=== PATIENT | female | born 1935 | race Caucasian/White ===

== ENCOUNTER 2018-06-08 17:05 | Emergency (ER) | payer OTHER ==
--- NOTE | 2018-06-08 17:44 | EDPHY ---
H & P Smoking Status: Former smoker Time Seen by Provider: 06/08/18 17:42 HPI/ROS: CHIEF COMPLAINT: Left knee pain and right shoulder pain HISTORY OF PRESENT ILLNESS: The patient is a 83-year-old female on Coumadin who reports that she was carrying groceries into her house when she tripped and fell and landed on the left knee and right shoulder. She has not recall hitting her head and does not think she lost consciousness. She denies any headache or vision changes or neck pain. She denies any chest pain or shortness of breath or syncopal event. She denies dizziness. She has been able to stand on the left leg but this is painful. Addition she denies any numbness or weakness in the right arm. REVIEW OF SYSTEMS: Constitutional: No fever, no chills. Eyes: No discharge. ENT: No sore throat. Cardiovascular: No chest pain, no palpitations. Respiratory: No cough, no shortness of breath. Gastrointestinal: No abdominal pain, no vomiting. Genitourinary: No hematuria. Musculoskeletal: No back pain. Skin: No rashes. Neurological: No headache. (Charles Silva) Physical Exam: General Appearance: Alert and no distress. ENT: normal dentition. No tonsillar exudate or swelling. No Coulter signs, raccoon eyes or hemotympanum Eyes: Pupils equal and round no injection. Extraocular muscles intact. Respiratory: Chest is nontender, lungs are clear to auscultation. Cardiac: regular rate and rhythm. No lower extremity edema Gastrointestinal: Abdomen is soft and nontender, no masses, bowel sounds normal. Musculoskeletal: Neck is supple and nontender. Limited range of motion of left knee secondary to pain. Neurovascular intact distal to the left knee. Tenderness over the distal right clavicle. Full range of motion of the right arm with pain at the shoulder. Skin: Abrasion to left knee. Small abrasion to right lateral scalp Neuro: Cranial nerves grossly intact. No nystagmus. Normal [id number]-pu-[id number] testing. No ulnar drift. Equal grasp bilateral hands. Ambulatory. (Charles Silva) Constitutional: Initial Vital Signs Temperature (C) 36.5 C 06/08/18 17:20 Heart Rate 87 06/08/18 17:20 Respiratory Rate 16 06/08/18 17:20 Blood Pressure 151/85 H 06/08/18 17:20 O2 Sat (%) 94 06/08/18 17:20 O2 Delivery Mode Room Air Allergies/Adverse Reactions: No Known Allergies Allergy (Unverified 06/08/18 17:18) Home Medications: Medication Instructions Recorded Ascorbic Acid [Vitamin C 500 mg 500 mg PO DAILY 06/09/12 (OTC)] CALCIUM CARBONATE/VITAMIN D3 1 each PO DAILY 06/09/12 [CALCIUM + D 600 MG TABLET] Cholecalciferol Vit D3 [Vitamin D3 1,000 units PO DAILY 06/09/12 1000 units (OTC)] Ibuprofen [Motrin 200 mg (OTC)] 200 mg PO Q2 PRN 06/09/12 Multivitamins [Multivitamin (OTC)] 1 each PO DAILY 06/09/12 Simvastatin [Zocor 10 mg (RX)] 10 mg PO DAILY18 06/09/12 Hydrocodone/Acetaminophen [Warbranch 1 each PO Q6 #14 tablet 06/08/18 5-325 Tablet] Metoprolol Tartrate 06/08/18 Sonata 06/08/18 Medical Decision Making - Diagnostics Imaging Results: Imaging Impressions Head CT 06/08/18 17:49 Impression: Senescent features, with no acute intracranial abnormality identified on this unenhanced CT evaluation. If there is further clinical concern regarding the patient's symptoms, MR imaging is suggested, if not otherwise contraindicated. Findings were discussed with Charles Silva PA-C at 18:10, on 06/08/2018. Knee X-Ray 06/08/18 17:49 Impression: 1. Complex patellar fracture with 9 mm of displacement of the superior from inferior components. Shoulder X-Ray 06/08/18 17:49 Impression: Minimally displaced distal right clavicle fracture and also there appears to be a fracture of the tip of the coracoid process. Other chronic findings as above. ED Course/Re-evaluation: 83-year-old female here with ground level mechanical fall resulting in scalp abrasion, right clavicle fracture and left patella fracture. She was offered admission and consult from Orthopedics but patient declined. She was able to road test in the emergency room with crutches and knee immobilizer in place. She was given orthopedic follow-up. Pain well controlled on oral Warbranch. CT scan of the head showed no fracture or intracranial bleed. Indications for return to the emergency room were discussed. Differential diagnosis include dislocation, fracture, neurovascular injury, intracranial bleed, syncope ( Ricardo[place] camp) I did not see this patient while she was in the emergency department. However her care was discussed with the PA while the patient was in the department. I agree with treatment plan and management (Wilmer Joe Ria) - Data Points Medications Given: Discontinued Medications Hydrocodone Bitart/Acetaminophen (Warbranch 5/325) 1 tab PO EDNOW ONE Stop: 06/08/18 18:11 Last Admin: 06/08/18 18:13 Dose: 1 tab Hydrocodone Bitart/Acetaminophen (Warbranch 5/325mg Prepack#6) 1 btl TAKEHOME EDNOW ONE Stop: 06/08/18 19:48 Last Admin: 06/08/18 19:50 Dose: 1 btl Departure - Departure Disposition: Home, Routine, Self-Care Clinical Impression: Right clavicle fracture, Left patella fracture, Head injury Condition: Good Instructions: Hydrocodone/Acetaminophen (By mouth), Patellar Fracture (ED) Additional Instructions: Please wear the knee immobilizer to stabilize the fracture of her patella. Additionally wear the shoulder sling as needed for pain. Call Orthopedics tomorrow to schedule appointment to be seen late next week or as soon as you are available next week. He will need surgery to repair her patella. Return to the ER if you feel unsafe ambulating or for any other worsening or worrisome symptoms. Referrals: DIANELYS ANDINO [Primary Care Provider] - As per Instructions Radha Terrell MD [Medical Doctor] - As per Instructions Prescriptions: Hydrocodone/Acetaminophen [Warbranch 5-325 Tablet] 1 each PO Q6 #14 tablet
[2018-06-08] MEDS ORDERED: HYDROCODONE/APAP 5/325 TAB PO ONE (18:10)
[2018-06-08] MEDS ORDERED: HYDROCOD/APAP 5/325 PREPACK#6 BTL TAKEHOME ONE ×2 (19:44→19:47)
[2018-06-08 20:00] VITALS: BP 145/67
== END 2018-06-08 20:00 | disposition home or self-care (01) ==
DX: S82.032A Displaced transverse fracture of left patella, initial encounter for closed fracture (principal); S42.031A Displaced fracture of lateral end of right clavicle, initial encounter for closed fracture; S00.01XA Abrasion of scalp, initial encounter; W01.0XXA Fall on same level from slipping, tripping and stumbling without subsequent striking against object, initial encounter; Y93.E9 Activity, other interior property and clothing maintenance; Y92.019 Unspecified place in single-family (private) house as the place of occurrence of the external cause
CPT/HCPCS: 70450; 73030; 73564; 99284; A4565; L1830

== ENCOUNTER 2018-06-21 10:11 | Observation (INO) | payer OTHER ==
--- NOTE | 2018-06-19 16:32 | GHP ---
DATE OF ADMISSION: 06/21/2018 PROBLEM: Left patellar fracture. HISTORY OF PRESENT ILLNESS: The patient is an 83-year-old woman admitted for ORIF of left patellar f racture. She slipped and fell about a week and half ago. She was seen in the emergency room. Films showed a displaced transverse left patellar fracture. She also has a mildly-displaced right distal clavicle fracture. She has been wearing a Velcro splint on her knee and partial weightbearing. She is admitted for ORIF of her patellar fracture. PAST MEDICAL HISTORY: She had a pulmonary embolism in 2011. She has been on Coumadin 2.5 mg per day ever since then. She is also treated for hypertension. No history of heart disease, hepatitis, MRS A staph infection, sleep apnea, or bleeding disorders. CURRENT MEDICATIONS: Metoprolol and simvastatin. She takes Coumadin 2.5 mg per day. I had her stop the Coumadin 5 days prior to surgery, and I bridged her with Lovenox 40 mg per day. ALLERGIES: Drug Allergies: None. Latex allergy: None. SOCIAL HISTORY: The patient is . She does not smoke cigarettes or drink alcohol. PHYSICAL EXAMINATION: Vital Signs: Height 5 feet 2 inches. Weight 112 pounds. BMI 20.5. EYES: P upils are round and reactive. MOUTH: Complete upper and lower dentures. CHEST: Clear. HEART: Re gular rhythm, no murmurs. EXTREMITIES: Pertinent findings limited to her left knee. She has a mode rately large amount of resolving ecchymosis. She has some minor skin abrasion, which is healing. IMPRESSION ON ADMISSION: 1. Displaced left patellar fracture. 2. Moderately displaced right distal clavicle fracture. 3. History of pulmonary embolism in 2011. PLAN: She will undergo ORIF of her left patellar fracture. The surgery has been described to her, i ncluding the risks, complications, expectations, and recovery time. She stopped her Coumadin 5 days prior to surgery, and she has been on bridge therapy with Lovenox. I will start her back on her Coum yoni postoperatively. The surgery has been described to her, her , and to her daughter, including the risks, complic ations, expectations, and recovery time. All of their questions have been answered, and she consents to surgery. Incidentally, I did open reduction, internal fixation of her right patella 33 years ago. /[id number]/MODL
[~2018-06-21 10:11] MED LIST: POVIDONE-IODINE 20 ML in SODIUM CL IRRIG SOLUTION 500 ML IRR ONE; ROPIVACAINE 0.2% 80 MG, EPINEPHrine 0.2 MG, KETOROLAC TROMETHAMINE 30 MG in SYRINGE 0 ML IU ONE; TRANEXAMIC ACID 1,000 MG in NS 100 ML IV ONE; TRANEXAMIC ACID 3,000 MG in NS (SYRINGE) 50 ML IRR ONE
[2018-06-21] MEDS ORDERED: LR 1,000 ML IV SCH ×2 (11:45→15:30)
[2018-06-21] MEDS ORDERED: ACETAMINOPHEN 500 MG TAB PO ONE (11:45)
[2018-06-21] MEDS ORDERED: LIDOCAINE 1% 2 ML INJ ID PRN (11:45)
[2018-06-21] MEDS ORDERED: ceFAZolin 2 GM/DEXTROSE 100 ML IV ONE (11:45)
[2018-06-21] MEDS ORDERED: LR 1,000 ML IV ONE (11:45)
--- NOTE | 2018-06-21 12:31 | POSTANESTH ---
Post Anesthetic Evaluation Cardiovascular Status: Normal, Stable Respiratory Status: Normal, Stable Level of Consciousness/Mental Status: Can Participate in Eval, Mildly Sleepy, Arousable Pain Control: Adequate, Prn Tx Ordered Nausea/Vomiting Control: Adequate, Prn Tx Ordered Complications Possibly Related to Anesthesia: None Noted
--- NOTE | 2018-06-21 12:36 | PDANEPAE ---
ANE History of Present Illness 83 yo female s/p fall about 10 days ago with L patella fx for ORIF. ANE Past Medical History - Cardiovascular History Hx Hypertension: Yes Hx Arrhythmias: No Hx Chest Pain: No Hx Coronary Artery / Peripheral Vascular Disease: No Hx CHF / Valvular Disease: No Hx Palpitations: No Cardiovascular History Comment: high cholesterol - Pulmonary History Hx COPD: Yes Hx Asthma/Reactive Airway Disease: No Hx Recent Upper Respiratory Infection: No Hx Oxygen in Use at Home: No Hx Sleep Apnea: No Sleep Apnea Screening Result - Last Documented: Negative Pulmonary History Comment: mild copd. recent URI/ bronchitis, s/p Abx about 3 weeks ago - Neurologic History Hx Cerebrovascular Accident: No Hx Seizures: No Hx Dementia: No - Endocrine History Hx Diabetes: No Hypothyroid: No Hyperthyroid: No Obesity: no - Renal History Hx Renal Disorders: No - Liver History Hx Hepatic Disorders: No - Neurological & Psychiatric Hx Hx Neurological and Psychiatric Disorders: No - Cancer History Hx Cancer: Yes Cancer History Comment: skin ca - Congenital Disorder History Hx Congenital Disorders: No - GI History GERD: no Hx Gastrointestinal Disorders: No - Other Health History Other Health History: wears glasses. full dentures. right clavicle fx as well. 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 right knee repair 30 yrs ago with Cotuit ANE Review of Systems Review of Systems: - Exercise capacity METS (RN): 4 METS - Systems Constitutional: Reports: no symptoms Muscolosketal: Reports: joint pain ANE Patient History - Allergies Allergies/Adverse Reactions: No Known Allergies Allergy (Verified 06/19/18 14:36) - Home Medications Home Medications: Ascorbic Acid [Vitamin C 500 mg (OTC)] 06/09/12 [Last Taken 06/19/18] CALCIUM CARBONATE/VITAMIN D3 [CALCIUM + D 600 MG TABLET] 06/09/12 [Last Taken 06/19/18] Cholecalciferol Vit D3 [Vitamin D3 1000 units (OTC)] 06/09/12 [Last Taken 06/19] Ibuprofen [Motrin 200 mg (OTC)] PRN 06/09/12 [Last Taken 06/19/18] Multivitamins [Multivitamin (OTC)] 06/09/12 [Last Taken 06/19/18] Simvastatin [Zocor 10 mg (RX)] 06/09/12 [Last Taken 06/20/18] Metoprolol Tartrate 06/08/18 [Last Taken 06/21/18] Sonata 06/08/18 [Last Taken 06/20/18] Hydrocodone/Acetaminophen [Novice 5-325 Tablet] Q6 PRN 06/19/18 [Last Taken 06/20] - NPO status NPO Since - Liquids (Date): 06/21/18 NPO Since - Liquids (Time): 09:00 NPO Since - Solids (Date): 06/20/18 NPO Since - Solids (Time): 20:00 - Smoking Hx Smoking Status: Former smoker - Family Anes Hx Family Hx Anesthesia Complications: none ANE Labs/Vital Signs - Vital Signs Blood Pressure: 137/81 Heart Rate: 84 Respiratory Rate: 18 O2 Sat (%): 94 Height: 157.48 cm Weight: 50.802 kg ANE Physical Exam - Airway Neck exam: FROM Mallampati Score: Class 2 Mouth exam: dentures - Pulmonary Pulmonary: clear to auscultation - Cardiovascular Cardiovascular: irregularly irregular (h/o PACs) - ASA Status ASA Status: II ANE Anesthesia Plan Anesthesia Plan: GA w LMA
[2018-06-21] MEDS ORDERED: BUPIVACAINE/EPI 0.5% 30 ML SDV ONE (12:38)
--- NOTE | 2018-06-21 12:38 | PDHPUP ---
History & Physical Update H&P update statement: This history and physical update is based on an assessment of the patient which was completed after admission or registration (within 24 hours), but prior to the surgery/procedure. H&P update: H&P reviewed & patient examined
[2018-06-21] MEDS ORDERED: POLYMYXIN B SULFATE 500,000 UNIT/10 ML SYR IRR ONE (12:39)
[2018-06-21] MEDS ORDERED: BACITRACIN 50,000 UNITS/10 ML SYR IRR ONE (12:39)
[2018-06-21] MEDS ORDERED: LIDOCAINE 2% 5 ML SDV ONE (13:31)
[2018-06-21] MEDS ORDERED: fentaNYL 100 MCG/2 ML INJ ONE ×2 (13:31→14:02)
[2018-06-21] MEDS ORDERED: PROPOFOL 200 MG/20 ML VIAL ONE ×2 (13:31)
[2018-06-21] MEDS ORDERED: DEXAMETHASONE 4 MG/ML VIAL ONE (13:31)
[2018-06-21 14:03] LABS: INR 1.18 (0.83-1.16); PROTIME(PATIENT) 15.2 SEC (12.0-15.0)
[2018-06-21] MEDS ORDERED: ONDANSETRON 4 MG/2 ML VIAL ONE (14:37)
[2018-06-21] MEDS ORDERED: LABETALOL HCL 5 MG/ML 20 ML MDV IVP PRN (14:47)
[2018-06-21] MEDS ORDERED: ALBUTEROL 3 ML DEYVIAL IH PRN (14:47)
[2018-06-21] MEDS ORDERED: NALOXONE HCL 0.4 MG/ML INJ IVP PRN (14:47)
[2018-06-21] MEDS ORDERED: LR 500 ML IV PRN (14:47)
[2018-06-21] MEDS ORDERED: oxyCODONE IR 5 MG TAB PO PRN ×2 (14:47→15:12)
[2018-06-21] MEDS ORDERED: fentaNYL 100 MCG/2 ML INJ IVP PRN (14:47)
[2018-06-21] MEDS ORDERED: HYDROmorphONE/DILAUDID 2 MG/ML INJ IVP PRN (14:47)
--- NOTE | 2018-06-21 14:55 | POSTOPPROG ---
Post Op Note Date of Operation: 06/21/18 Surgeon: Robert Shipman Carbonating Stone Cleaner: Sandoval Anesthesiologist: Zoran Anesthesia: GET(General Endotracheal) Post-op Diagnosis: Displaced left patellar fracture Procedure: ORIF of left patellar fracture Inf/Abcess present in the surg proc area at time of surgery?: No EBL: 50-100
[2018-06-21] MEDS ORDERED: ACETAMINOPHEN 325 MG TAB PO PRN (15:12)
[2018-06-21] MEDS ORDERED: ONDANSETRON DISINTEGRATING 4 MG TAB PO PRN (15:12)
[2018-06-21] MEDS ORDERED: traMADol 50 MG TAB PO PRN (15:12)
[2018-06-21] MEDS ORDERED: PROMETHAZINE HCL 25 MG/ML INJ IVP PRN (15:12)
[2018-06-21] MEDS ORDERED: ONDANSETRON 4 MG/2 ML VIAL IVP PRN (15:12)
--- NOTE | 2018-06-21 15:28 | GOP ---
DATE OF OPERATION: 06/21/2018 SURGEON: Robert Shipman MD MENTAL TESTER: LUIS Arias. Maulik Yusuf CFA. ANESTHESIA: General. ANESTHESIOLOGIST: Denisse Wise MD. PREOPERATIVE DIAGNOSIS: Displaced left patellar fracture. POSTOPERATIVE DIAGNOSIS: Displaced left patellar fracture. PROCEDURE PERFORMED: Open reduction, internal fixation of left patellar fracture with cannulated scr ews and cerclage wire. FINDINGS: DESCRIPTION OF PROCEDURE: The patient was given 2 g of IV Ancef preoperatively within 60 minutes of surgery. She also received 1000 mg of IV tranexamic acid. Her left lower extremity was prepped with ChloraPrep from the upper thigh tourniquet to the tips of t he toes. It was draped free using sterile sheets, towels, and stockinette and Ioban plastic drape. The [employer] time-out was performed to verify the correct patient identity and the c orrect surgical side and site. The [place] time-out was also performed. I made a 4-inch vertical incision centered on the patella. Subcutaneous tissues were sharply divided and hemostasis was obtained using electrocautery. Prior to skin incision, the leg was exsanguinated and the tourniquet was inflated to 250 mmHg. With sharp dissection, I dissected down to the anterior surface of her patella. I could visualize th e fracture. I used a scalpel to open the fracture site. I then used a curette and irrigation to rem ove the hematoma. I made a small window in the lateral parapatellar capsule so that I could see the articular surface of the patella. The fracture was manipulated into place and held with locking towe l clips. I used the fluoroscope to confirm proper reduction. I then inserted 2 threaded K-wires fro m proximal to distal. I used the C-arm to confirm proper reduction of the fracture and proper positi on of the K-wires. I then drilled over the K-wires. I inserted two 40 mm partially threaded cannula omar 3.5 mm screws. I used the fluoroscope to check the position of the screws and the reduction. On e screw was a little too long. I replaced it with a 36 mm partially threaded 3.5 mm cannulated screw . I then passed a 1.0 mm wire through the cannulated screws. I crossed this in a [id number] co nfiguration across the superficial surface of the patella. I created a loop on the medial side. I then used a needle local tanker truck driver to tighten or twist the wires to ti ghten it. The loop on the medial side was also twisted to tighten. I did 1 final lateral x-ray to c onfirm proper position of the hardware and good reduction of the fracture. The free ends of the cerc evert wire were cut off. The hardware was twisted down toward the cortical surface of the patella to minimize the prominence. I could flex her leg to 120 degrees without any distraction of the fracture. The tourniquet was deflated. The total tourniquet time was 46 minutes. The small window in the late ral capsule was closed with interrupted 2-0 Vicryl sutures. The skin was closed with an 0 Stratafix Monoderm subcuticular running suture. The skin itself was closed with a running 3-0 barbed Stratafix Monoderm subcuticular suture. The skin edges were reapproximated and sealed with half-inch Steri-St rips. The skin edges were infiltrated with 20 cc of 0.5% Marcaine with epinephrine. 10 cc of 0.5% M arcaine with epinephrine were instilled intra-articularly. The wound was covered with a large Mepilex sterile surgical dressing. The knee was wrapped with a Ke rlix. She was placed back in her Velcro knee splint with the knee in full extension. A sacral Mediplex dressing was applied. She was awakened from anesthesia, transferred to her gurney, and taken to PACU in satisfactory condit ion. There were no recognized intraoperative complications. Trevor Soriano and Maulik Yusuf acted as surgical assistants. Their assistance was a medical necess ity for safe completion of the procedure. Copy requested to: Dr. Tobin Fuad [facility] /[id number]/MODL
[2018-06-21] MEDS ORDERED: oxyCODONE IR 5 MG TAB ONE (15:48)
[2018-06-21] MEDS: KETOROLAC 15 MG/1 ML SDV IVP SCH (19:18)
[2018-06-21] MEDS ORDERED: WARFARIN SODIUM 5 MG TAB PO ONE (20:00)
[2018-06-21] MEDS ORDERED: TEMAZEPAM 15 MG CAP PO SCH (21:00)
[2018-06-21] MEDS: ENOXAPARIN 40 MG/0.4 ML SYR SC SCH (21:46)
[2018-06-22] MEDS: KETOROLAC 15 MG/1 ML SDV IVP SCH ×3 (00:52→12:21)
[2018-06-22] MEDS ORDERED: ZALEPLON 10 MG PO PRN (07:29)
[2018-06-22] MEDS ORDERED: HYDROCODONE/APAP 5/325 TAB PO PRN (07:30)
--- NOTE | 2018-06-22 07:35 | SOAPPROG ---
SOAP Progress Note Assessment/Plan: Assessment: Awake and alert. Very little pain. She has stood in taking a few steps in the room. Plan: Up with physical therapy today. Discharge later today. 06/22/18 07:34 Objective: Vital Signs Temp Pulse Resp BP Pulse Ox 36.8 C 69 16 106/53 L 93 06/22/18 04:00 06/22/18 04:00 06/22/18 04:00 06/22/18 04:00 06/22/18 04:00 Laboratory Results 06/22/18 05:06 06/21/18 06/22/18 06/23/18 05:59 05:59 05:59 Intake Total 1275 Output Total 350 400 Balance 925 -400 PT 15.2 SEC (12.0-15.0) H 06/21/18 13:35 INR 1.18 (0.83-1.16) H 06/21/18 13:35 ICD10 Worksheet Patient Problems: Problems Problem Status Onset Patellar fracture Acute
[2018-06-22 07:45] VITALS: BP 109/56
[2018-06-22] MEDS ORDERED: ALBUTEROL 60 PUFFS/8 GM MDI IH PRN (07:45)
--- NOTE | 2018-06-22 07:51 | GDS ---
ADMISSION DIAGNOSIS: Displaced left patellar fracture. DISCHARGE DIAGNOSIS: Displaced left patellar fracture. OPERATIONS PERFORMED: 07/10/2018: Open reduction and internal fixation of left patellar fracture. POSTOPERATIVE COMPLICATIONS: None. CONDITION ON DISCHARGE: Improved. DESCRIPTION OF HOSPITAL COURSE: The patient was admitted to the hospital on the morning of surgery. The same day, under general anesthesia, she underwent ORIF of her displaced left patellar fracture. The patient has a history of pulmonary embolism and has chronically been on Coumadin. On the in g of surgery, she was started back on her Coumadin along with Lovenox. On the first postoperative da y, her BUN was 25 and her creatinine 0.8. She was seen by Physical Therapy and made satisfactory pro marcio with ambulation and stairs. DISPOSITION: The patient is discharged to her home in the care of her family. She will remain on Lo venox for 2 additional days and then continue her normal dose of Coumadin of 2.5 mg per day. I will see her back in the office on June 30, 2018. She may bear weight as tolerated on the left. Ramesh nue her Velcro knee splint with the knee in full extension. Copy requested to: Dr. Mahad Merida [facility] /[id number]/MODL
[2018-06-22] MEDS ORDERED: PRAVASTATIN SODIUM 20 MG TAB PO SCH (09:00)
[2018-06-22] MEDS ORDERED: WARFARIN SODIUM 2.5 MG TAB PO SCH (09:00)
[2018-06-22] MEDS ORDERED: METOPROLOL SUCCINATE XR 25 MG TAB PO SCH (09:00)
[2018-06-22] MEDS: ENOXAPARIN 40 MG/0.4 ML SYR SC SCH (10:10)
--- NOTE | 2018-06-22 15:57 | ASMTDCNOTE ---
Case Management Discharge Discharge Order Complete? Answers: Yes Discharge Comments Notes: Pt being discharged Independently, no CM needs identified. Date Signed: 06/22/2018 03:56 PM Electronically Signed By:BLANCA Francis
== END 2018-06-22 13:27 | disposition home or self-care (01) ==
LOC: INTOOBSV 11:05 → F3N 11:05
PROVIDERS: ADMIT Orthopaedic Surgery; ATTEND Orthopaedic Surgery
PROC: 0QSF04Z Reposition Left Patella with Internal Fixation Device, Open Approach (ICD-10-PCS; principal; 2018-06-21 13:00)
PROC: BQ181ZZ Fluoroscopy of Left Knee using Low Osmolar Contrast (ICD-10-PCS; principal; 2018-06-21 13:00)
DX: S82.032A Displaced transverse fracture of left patella, initial encounter for closed fracture (principal); W01.0XXA Fall on same level from slipping, tripping and stumbling without subsequent striking against object, initial encounter; Y93.E9 Activity, other interior property and clothing maintenance; Y92.019 Unspecified place in single-family (private) house as the place of occurrence of the external cause; Z86.711 Personal history of pulmonary embolism; Z79.01 Long term (current) use of anticoagulants; I10 Essential (primary) hypertension
CPT/HCPCS: 27524; 73560; 97161; 97165; 97535; C1713; J0171; J0690; J1100; J1650; J1885; J2405; J2704; J2795; J3010